=== PATIENT | female | born 1965 | race Caucasian/White ===

== ENCOUNTER 2018-12-21 02:54 | Emergency (ER) | payer OTHER ==
[~2018-12-21] VITALS: Ht 154.9 cm; Wt 46.3 kg
[2018-12-21 03:00] VITALS: BP 167/86
--- NOTE | 2018-12-21 03:07 | NUR ---
PT AMBULATED TO BED 9 WITH VSS.
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
--- NOTE | 2018-12-21 03:23 | NUR ---
SPOKE TO [facility] OFFICE. STATES NO OFFICER TO BE SENT OUT. PT NEEDS TO MAKE REPORT HERSELF.
[2018-12-21] MEDS ORDERED: IBUPROFEN 800 MG TAB PO ONE (04:00)
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
--- NOTE | 2018-12-21 04:20 | NUR ---
PATIENT REFUSED MEDICATION, ADACEL IM, ERMD NOTED
--- NOTE | 2018-12-21 04:40 | NUR ---
PT TO CT VIA WHEELCHAIR BY TECH.
--- NOTE | 2018-12-21 05:02 | NUR ---
PT BACK IN BED FROM CT. BED IN LOWER LOCKED POSITION, BEDRAILS UP X2.
[2018-12-21 07:02] VITALS: BP 132/75
== END 2018-12-21 06:10 | disposition home or self-care (01) ==
LOC: MED 02:54
DX: S00.31XA Abrasion of nose, initial encounter (principal); S30.810A Abrasion of lower back and pelvis, initial encounter; S80.811A Abrasion, right lower leg, initial encounter; S00.81XA Abrasion of other part of head, initial encounter; S50.811A Abrasion of right forearm, initial encounter; R03.0 Elevated blood-pressure reading, without diagnosis of hypertension; V09.9XXA Pedestrian injured in unspecified transport accident, initial encounter; Y93.01 Activity, walking, marching and hiking; Y92.414 Local residential or business street as the place of occurrence of the external cause; Y99.8 Other external cause status
CPT/HCPCS: 70486; 72131; 90715; 99284